=== PATIENT | male | born 1975 | race Hispanic/Latino ===

== ENCOUNTER 2017-07-26 12:24 | Emergency (ER) | payer SELFPAY ==
[~2017-07-26] VITALS: Ht 167.6 cm; Wt 100.0 kg
[2017-07-26] MEDS ORDERED: ULTRAM50 M1 PO (14:41)
[2017-07-26 14:50] VITALS: BP 160/82
== END 2017-07-26 14:51 | disposition home or self-care (01) | DRG 605 ==
LOC: ED 12:24
DX: S60.212A Contusion of left wrist, initial encounter (principal); M25.432 Effusion, left wrist; S60.222A Contusion of left hand, initial encounter; W20.8XXA Other cause of strike by thrown, projected or falling object, initial encounter; Y93.H2 Activity, gardening and landscaping; Y92.89 Other specified places as the place of occurrence of the external cause